=== PATIENT | male | born 1960 | race Caucasian/White ===

== ENCOUNTER 2019-09-04 16:59 | Emergency (ER) | payer OTHER ==
--- NOTE | 2019-09-04 17:06 | NUR ---
Patient to ER bed 05 to gown for evaluation. Side rails up.
--- NOTE | 2019-09-04 17:07 | NUR ---
Dr mckee at bedside examining patient
--- NOTE | 2019-09-04 17:08 | NUR ---
SPOKE WITH PTS DAUGHTER, PT WAS SEEN AT [facility] AND TOLD TO GO TO [facility]. DAUGHTER THOUGHT [facility] WAS [facility]. DAUGHTER REQUESTING TO TAKE FATHER OUT OF [place] TO [facility]. PT ELOPED WITH DAUGHTER.
== END 2019-09-04 17:08 | disposition home or self-care (01) ==
LOC: SED 16:59
DX: F10.129 Alcohol abuse with intoxication, unspecified (principal); I10 Essential (primary) hypertension; Y90.9 Presence of alcohol in blood, level not specified
CPT/HCPCS: 99281